=== PATIENT | female | born 1960 | race Caucasian/White ===

== ENCOUNTER 2016-12-31 14:19 | Outpatient (CLI) ==
[2016-02-27 11:43] VITALS: BMI 25.0
[2016-12-31 14:48] LABS: BASOPHILS # (AUTO) 0.1 K/uL (0-0.2); BASOPHILS % (AUTO) 0.8 % (0.0-3.0); EOSINOPHILS # (AUTO) 0.2 K/ul (0.0-0.7); EOSINOPHILS % (AUTO) 1.9 % (0.0-7.0); HEMATOCRIT 43.7 % (37.0-47.0); HEMOGLOBIN 14.6 g/dl (12.0-16.0); IMMATURE GRANULOCYTE % (AUTO) 0.3 % (0.0-5.0); LYMPHOCYTES # (AUTO) 3.9 K/uL (0.60-3.4); LYMPHOCYTES % (AUTO) 34.8 (10.0-50.0); MEAN CORPUSCULAR HEMOGLOBIN 27.9 pg (27.0-31.0); MEAN CORPUSCULAR HGB CONC 33.4 (31.8-35.4); MEAN CORPUSCULAR VOLUME 83.6 fl (81.0-99.0); MONOCYTES # (AUTO) 0.7 K/uL (0.4-2.0); MONOCYTES % (AUTO) 6.4 (0-10); NEUTROPHILS # (AUTO) 6.2 K/ul (2.0-6.9); NEUTROPHILS % (AUTO) 55.8; PLATELET COUNT 288 10^3/uL (140-440); RED BLOOD COUNT 5.23 10^6/ul (4.20-5.40); WHITE BLOOD COUNT 11.12 K/ul (4.6-10.2)
--- NOTE | 2016-12-31 14:58 | DI ---
EXAM: Chest two views HISTORY: Generalized abdominal pain COMPARISON: 02/27/2016 TECHNIQUE: Two views of the chest were performed FINDINGS: The lungs are clear. Lungs are hyperinflated. There is no pleural effusion or pneumotho rax. The heart is normal in size. The mediastinal contour is normal, noting atherosclerosis. Ther e are no acute abnormalities of the bones. No free air beneath the diaphragm. IMPRESSION: 1. No acute cardiopulmonary process. 2. Hyperinflated lungs may suggest chronic obstructive pulmonary disease
[2016-12-31 15:07] LABS: ALBUMIN 3.7 g/dL (3.4-5.0); ALBUMIN/GLOBULIN RATIO 0.95; BILIRUBIN,TOTAL 0.35 mg/dL (0.00-1.20); BUN/CREATININE RATIO 17.58; CALCIUM 9.5 mg/dL (8.2-10.2); CREATININE 0.91 mg/dL (0.60-1.30); TOTAL PROTEIN 7.6 g/dL (6.4-8.2)
[2016-12-31 15:13] LABS: BILIRUBIN,URINE Negative (NEGATIVE); KETONES,URINE Negative (NEGATIVE); LEUKOCYTE ESTERASE ,URINE Negative (NEGATIVE); NITRITE,URINE Negative (NEGATIVE); PROTEIN,URINE Negative (NEGATIVE); URINE, BLOOD Trace-lysed (NEGATIVE)
[2016-12-31 15:15] LABS: ADD URINE MICROSCOPIC YES
--- NOTE | 2017-01-01 09:18 | CT ---
EXAM: CT abdomen pelvis with contrast HISTORY: Abdominal pain and distension with back pain and known history of injury. Patient with hi story of prior appendectomy and hysterectomy. COMPARISON: None TECHNIQUE: Serial axial images of the abdomen pelvis were performed after IV contrast was administe red. These were obtained from the lung bases through the inferior pelvis. FINDINGS: The lung bases demonstrate ground-glass nodule in the left lung base measuring 0.6 cm in diameter on image six. The liver is unremarkable. The gallbladder is normal without inflammation. The adrenal glands are unremarkable. The kidneys are normal. The spleen is unremarkable. The pancreas is normal. The st omach is normal. The small bowel in the abdomen pelvis is normal. The colon demonstrates diverticulosis without dive rticulitis. Appendix is not identified consistent with prior appendectomy. There has been a prior hysterectomy. The urinary bladder is partially distended. There is no free air, free fluid or lymp hadenopathy. The osseous structures demonstrate degenerative disease and facet arthropathy. IMPRESSION: 1. No acute intra-abdominal or pelvic process to account for patient's symptoms. 2. Changes of prior hysterectomy and appendectomy. 3. 0.6 cm ground-glass nodule in the left lung base may be postinflammatory. Follow-up as clinical ly indicated. 4. Diverticulosis without diverticulitis.
== END 2016-12-31 14:20 | disposition home or self-care (01) ==
LOC: RAD 14:19
PROVIDERS: ATTEND Nurse Practitioner Family
DX: R10.84 Generalized abdominal pain (principal); F17.200 Nicotine dependence, unspecified, uncomplicated
CPT/HCPCS: 36415; 80053; 80074; 81001; 82150; 83690; 85025